=== PATIENT | male | born 1935 | race Caucasian/White ===

== ENCOUNTER 2018-07-01 11:29 | Emergency (ER) | payer MEDICARE ==
[2018-07-01] MEDS ORDERED: Adacel (T-DAP) 0.5 ML VIAL ONE (11:37)
[2018-07-01] MEDS ORDERED: Lidocaine 1% 20 ML MDV ONE (11:37)
== END 2018-07-01 12:10 | disposition home or self-care (01) ==
LOC: NAV ERS 11:29
DX: S81.811A Laceration without foreign body, right lower leg, initial encounter (principal); E78.5 Hyperlipidemia, unspecified; I10 Essential (primary) hypertension; Z23 Encounter for immunization; W26.8XXA Contact with other sharp object(s), not elsewhere classified, initial encounter
CPT/HCPCS: 12002; 90471; 90715; J2001

== ENCOUNTER 2022-08-19 10:20 | Outpatient (CLI) | payer MEDICARE | END 2022-08-19 10:21 | disposition home or self-care (01) | LOC: NAV RAD 10:20 | PROVIDERS: ATTEND Neurological Surgery | DX: S32.010A Wedge compression fracture of first lumbar vertebra, initial encounter for closed fracture (principal); M47.816 Spondylosis without myelopathy or radiculopathy, lumbar region; M85.88 Other specified disorders of bone density and structure, other site | CPT/HCPCS: 72100 ==

== ENCOUNTER 2022-09-16 10:29 | Outpatient (CLI) | payer MEDICARE | END 2022-09-16 10:30 | disposition home or self-care (01) | LOC: NAV RAD 10:29 | PROVIDERS: ATTEND Neurological Surgery | DX: S32.019D Unspecified fracture of first lumbar vertebra, subsequent encounter for fracture with routine healing (principal); M43.9 Deforming dorsopathy, unspecified; M47.816 Spondylosis without myelopathy or radiculopathy, lumbar region | CPT/HCPCS: 72100 ==